=== PATIENT | male | born 1995 | race Caucasian/White ===

== ENCOUNTER 2017-08-18 11:13 | Emergency (ER) | payer BC ==
[~2017-08-18] VITALS: Ht 180.3 cm; Wt 74.8 kg
--- NOTE | 2017-08-18 11:28 | NUR ---
Patient was called in the waiting room for triage, patient is not around
--- NOTE | 2017-08-18 11:43 | NUR ---
CALLED PATIENT AGAI TO TRIAGE BUT NOT IN WATING ROOM
[2017-08-18 12:40] VITALS: BP 122/68
--- NOTE | 2017-08-18 14:06 | NUR ---
PT TO RADIOLOGY FOR LUMBAR AND THORACIC SPINE XRAY.
== END 2017-08-18 16:01 | disposition home or self-care (01) ==
LOC: ER 11:14
DX: M54.5 Low back pain (principal); M54.6 Pain in thoracic spine; W17.89XA Other fall from one level to another, initial encounter; Y93.89 Activity, other specified; Y92.89 Other specified places as the place of occurrence of the external cause; Y99.8 Other external cause status
CPT/HCPCS: 72070; 72110; 99284; A4606; Z7610